=== PATIENT | male | born 1995 | race Caucasian/White ===

== ENCOUNTER 2021-01-24 09:23 | Emergency (ER) | payer BC ==
[2021-01-24] MEDS ORDERED: Bacitracin/Neomycin/Polymyxin B Oint 0.9 GM U/D Packet ONE (10:41)
[2021-01-24 10:52] LABS: CHLORIDE,CL 104 mmol/L (98-107); SODIUM,NA 137 mmol/L (136-145)
[2021-01-24] MEDS ORDERED: Diphtheria,Pertussis(Acell),Tetanus Vaccine 0.5 ML Syringe IM ONE (11:18)
[2021-01-24] MEDS ORDERED: Ketorolac 60 MG/2 ML SDV IM ONE (11:19)
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
== END 2021-01-24 11:55 | disposition home or self-care (01) ==
LOC: LL.ED 09:23
DX: M54.5 Low back pain (principal); Z72.0 Tobacco use; Z23 Encounter for immunization; V86.99XA Unspecified occupant of other special all-terrain or other off-road motor vehicle injured in nontraffic accident, initial encounter
CPT/HCPCS: 36415; 72100; 72131; 80053; 85025; 90471; 90715; 96372; 99284; 99284-25; J1885

== ENCOUNTER 2021-02-07 13:31 | Emergency (ER) | payer BC ==
[2021-02-07] MEDS: Ketorolac 60 MG/2 ML SDV IM ONE (13:45)
[2021-02-07] MEDS: HYDROmorphone 0.5 MG/0.5 ML Syringe IM ONE (13:46)
[2021-02-07] MEDS: Diazepam 5 MG Tab PO ONE (13:47)
[2021-02-07] MEDS: methylPREDNISolone Sodium Succinate 125 MG/2 ML SDV IM ONE (14:08)
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
== END 2021-02-07 15:15 | disposition home or self-care (01) ==
LOC: LL.ED 13:31
DX: M54.5 Low back pain (principal); Z72.0 Tobacco use
CPT/HCPCS: 96372; 99283; 99284; A9270; J1170; J1885; J2930

== ENCOUNTER 2022-05-03 13:37 | Emergency (ER) | payer BC ==
[2022-05-03] MEDS ORDERED: Ketorolac 30 MG/ML SDV IM ONE (14:10)
== END 2022-05-03 15:12 | disposition home or self-care (01) ==
LOC: LL.ED 13:37
DX: S93.421A Sprain of deltoid ligament of right ankle, initial encounter (principal); F17.210 Nicotine dependence, cigarettes, uncomplicated
CPT/HCPCS: 73610; 96372; 99283; J1885

== ENCOUNTER 2022-07-10 13:37 | Emergency (ER) | payer BC ==
[2022-07-10] MEDS: Acetaminophen 325 MG Tab PO ONE (14:25)
[2022-07-10] MEDS: traMADol 50 MG Tab PO ONE (14:26)
[2022-07-10] MEDS: Ketorolac 30 MG/ML SDV IM ONE (14:27)
[2022-07-10] MEDS: Erythromycin Base 0.5% Ophth Oint 3.5 GM Tube EYEBOTH ONE (14:27)
== END 2022-07-10 14:40 | disposition home or self-care (01) ==
LOC: LL.ED 13:37
DX: H16.133 Photokeratitis, bilateral (principal); Z79.899 Other long term (current) drug therapy
CPT/HCPCS: 96372; 99283; A9270-GY; J1885